=== PATIENT | female | born 1960 | race Caucasian/White ===

== ENCOUNTER → 2018-04-06 | Outpatient (CLI) | payer BC | END | disposition home or self-care (01) | LOC: LAB SHORT 16:00 → LAB 16:00 | DX: R19.7 Diarrhea, unspecified (principal) | CPT/HCPCS: 87493 ==

== ENCOUNTER → 2019-04-20 | Outpatient (CLI) | payer BC ==
[2019-04-21 15:07] LABS: HPV 16 Negative (Negative); HPV 18 Negative (Negative); HPV OTHER HR TYPES Negative (Negative)
== END | disposition home or self-care (01) ==
LOC: LAB 12:21 → LAB SHORT 12:21
PROVIDERS: Nurse Practitioner Women's Health
DX: Z12.72 Encounter for screening for malignant neoplasm of vagina (principal); Z91.89 Other specified personal risk factors, not elsewhere classified
CPT/HCPCS: 87624; G0123

== ENCOUNTER 2021-02-25 08:11 | Day surgery (SDC) | payer BC ==
[~2021-02-25 08:11] MED LIST: Premarin0.3 MG PO; TRAM50 PO
--- NOTE | 2021-02-25 08:50 | NUR ---
02/25/21 0850 Dory Lynn 2 IV ATTEMPTS BY DORY. 1 IV ATTEMPT BY GIAN
== END 2021-02-25 10:29 | disposition home or self-care (01) ==
LOC: ORSCSDS 08:11
PROVIDERS: Student in an Organized Health Care Education/Training Program
PROC: 0DJD8ZZ Inspection of Lower Intestinal Tract, Via Natural or Artificial Opening Endoscopic (ICD-10-PCS; principal; 2021-02-25 09:30)
DX: Z12.11 Encounter for screening for malignant neoplasm of colon (principal); D12.4 Benign neoplasm of descending colon; Z79.899 Other long term (current) drug therapy
CPT/HCPCS: 88305; J2704; J7120

== ENCOUNTER → 2022-05-27 | Outpatient (CLI) | payer BC | LOC: PLD 11:13 → LAB SHORT 11:13 | DX: C44.319 Basal cell carcinoma of skin of other parts of face (principal) | CPT/HCPCS: 88305 ==

== ENCOUNTER 2023-07-06 10:11 | Day surgery (SDC) | payer BC ==
[~2023-07-06] VITALS: Ht 162.6 cm; Wt 63.0 kg
[2023-07-06] MEDS ORDERED: MELO7.5 PO (10:36)
[2023-07-06 12:43] VITALS: BP 129/78
--- NOTE | 2023-07-06 13:22 | NUR ---
07/06/23 1322 Amilcar Bonds IV REMOVED INTACT. SITE WNL. PT REPORTED 2/10 PAIN UPON D/C. SHE DESCRIBED PAIN TOLERABLE AND EXPRESSED READINESS TO RETURN HOME. PT STATES CURRENT B/P IS WITHIN 20% OF BASELINE AT HOME.
== END 2023-07-06 13:15 | disposition home or self-care (01) ==
LOC: ORSCSDS 10:11
PROVIDERS: Orthopaedic Surgery
PROC: 01N50ZZ Release Median Nerve, Open Approach (ICD-10-PCS; principal; 2023-07-06 11:30)
DX: G56.02 Carpal tunnel syndrome, left upper limb (principal); Z79.899 Other long term (current) drug therapy
CPT/HCPCS: J0690; J2001; J2250; J2704; J7120

== ENCOUNTER 2024-11-29 08:33 | Emergency (ER) | payer BC ==
[~2024-11-29] VITALS: Ht 162.6 cm; Wt 58.1 kg
[~2024-11-29 08:33] MED LIST changes: +MELO7.5 PO
[2024-11-29 09:15] VITALS: BP 174/82
[2024-11-29] MEDS ORDERED: Mag Hydrox/AL Hydrox/Simeth 30 ML UDC PO ONE (09:20)
[2024-11-29] MEDS ORDERED: Lidocaine 2% Viscous Soln 15 ML UDC PO ONE (09:20)
[2024-11-29] MEDS ORDERED: diphenhydrAMINE HCL 25 MG/10 ML UDC PO ONE (09:20)
[2024-11-29] MEDS ORDERED: Ondansetron 4 MG SoluTab SL ONE (09:25)
[2024-11-29] MEDS ORDERED: diphenhydrAMINE HCl 12.5 MG/5 ML 5MLUDC (Alcohol/Dye Free) PO ONE (09:35)
== END 2024-11-29 10:01 | disposition home or self-care (01) ==
LOC: ER 08:33
DX: T49.0X1A Poisoning by local antifungal, anti-infective and anti-inflammatory drugs, accidental (unintentional), initial encounter (principal); R11.2 Nausea with vomiting, unspecified; Z88.1 Allergy status to other antibiotic agents; Z88.8 Allergy status to other drugs, medicaments and biological substances
CPT/HCPCS: 99283; A9270